=== PATIENT | female | born 1980 | race Caucasian/White ===

== ENCOUNTER 2018-11-06 15:57 | Emergency (ER) | payer OTHER ==
[~2018-11-06] VITALS: Ht 177.8 cm; Wt 111.7 kg
[2018-11-06] MEDS ORDERED: IV NORMAL SALINE 1,000ML 1,000 ML IV SCH (16:29)
[2018-11-06 16:54] LABS: BASO % 0 % (0-3); EOS # 0.4 x10^3/uL (0.0-0.7); EOS % 3 % (0-3); HEMATOCRIT 41.6 % (36.0-47.0); LYMPH # 3.9 x10^3/uL (1.0-4.8); LYMPH % 35 % (24-48); MEAN CORPUSCULAR HEMOGLOBIN 29 pg (25-35); MEAN CORPUSCULAR HGB CONC 34 g/dL (31-37); MEAN CORPUSCULAR VOLUME 87 fL (79-100); MONO # 0.8 x10^3/uL (0.0-1.1); MONO % 7 % (0-9); NEUT # 6.1 x10^3uL (1.8-7.7); NEUT % 55 % (31-73); PLATELET COUNT 318 x10^3/uL (140-400); RED CELL DISTRIBUTION WIDTH 13.1 % (11.5-14.5); WHITE BLOOD COUNT 11.1 x10^3/uL (4.0-11.0)
[2018-11-06] MEDS ORDERED: FAMOTIDINE 20 MG/2 ML VIAL IVP ONE (17:00)
[2018-11-06] MEDS ORDERED: ONDANSETRON PF 4 MG/2 ML VIAL. IV ONE (17:00)
[2018-11-06 17:11] LABS: ALBUMIN 3.5 g/dL (3.4-5.0); ALBUMIN/GLOBULIN RATIO 0.9 (1.0-1.7); CREATININE 0.9 mg/dL (0.6-1.0); GFR 70.1; POTASSIUM 3.8 mmol/L (3.5-5.1); TOTAL BILIRUBIN 0.3 mg/dL (0.2-1.0); TOTAL PROTEIN 7.2 g/dL (6.4-8.2)
--- NOTE | 2018-11-06 17:14 | PHYS DOC ---
Past History Past Medical History: Bipolar, Other Past Surgical History: Cholecystectomy, Tonsillectomy, Other Smoking: Cigarettes Alcohol Use: None Drug Use: None Adult General Chief Complaint Chief Complaint: ABDOMINAL PAIN HPI HPI Patient is a 38 year old female who presents with of abdominal pain. Patient complaining of upper abdominal pain more in the left site for the last 4 days as a constant and sharp pain without radiation of pain. Patient complaining of nausea and decrease of appetite without fever and chills, vomiting, urinary symptoms, vaginal bleeding or discharge. Patient states she takes metformin and had total of 4 episodes of diarrhea daily but for the last 4 days she has more episodes of diarrhea. Patient denies and states she is not sexually active. Patient had history of cholecystectomy and previous episodes of the same pain with peptic ulcer disease. Review of Systems Review of Systems Constitutional: Denies fever or chills [] Eyes: Denies change in visual acuity, redness, or eye pain [] HENT: Denies nasal congestion or sore throat [] Respiratory: Denies cough or shortness of breath [] Cardiovascular: No additional information not addressed in HPI [] GI: Reports abdominal pain, nausea, diarrhea, denies vomiting and constipation : Denies dysuria or hematuria [] Musculoskeletal: Denies back pain or joint pain [] Integument: Denies rash or skin lesions [] Neurologic: Denies headache, focal weakness or sensory changes [] Endocrine: Denies polyuria or polydipsia [] All other systems were reviewed and found to be within normal limits, except as documented in this note. Current Medications Current Medications Current Medications Medications (Trade) Dose Ordered Sig/[facility] Start Time Stop Time Status Last Admin Dose Admin Famotidine (Pepcid Vial) 20 mg 1X ONCE 11/06/18 17:00 11/06/18 17:01 DC 11/06/18 16:50 20 MG Ondansetron HCl (Zofran) 4 mg 1X ONCE 11/06/18 17:00 11/06/18 17:01 DC 11/06/18 16:49 4 MG Sodium Chloride 1,000 ml @ 1,000 mls/hr Q1H 11/06/18 16:29 11/06/18 17:28 11/06/18 16:47 1,000 MLS/HR Allergies Allergies Allergies Coded Allergies Type Severity Reaction Last Updated Verified hydrocodone Allergy Unknown Itching 11/06/18 Yes Physical Exam Physical Exam Constitutional: Well developed, well nourished, mild distress, non-toxic appearance. [] HENT: Normocephalic, atraumatic, oropharynx dry, no oral exudates, nose normal. [] Eyes: PERRLA, EOMI, conjunctiva normal, no discharge. [] Neck: Normal range of motion, no tenderness, supple, no stridor. [] Cardiovascular:Heart rate regular rhythm, no murmur [] Lungs & Thorax: Bilateral breath sounds clear to auscultation [] Abdomen: Bowel sounds normal, soft, no tenderness, no masses, no pulsatile masses. [] Skin: Warm, dry, no erythema, no rash. [] Back: No tenderness, no CVA tenderness. [] Extremities: No tenderness, no cyanosis, no clubbing, ROM intact, no edema. [] Neurologic: Alert and oriented X 3, normal motor function, normal sensory function, no focal deficits noted. [] Psychologic: Affect normal, judgement normal, mood normal. [] Current Patient Data Vital Signs Vital Signs Date Time Temp Pulse Resp B/P (MAP) Pulse Ox O2 Delivery O2 Flow Rate FiO2 11/06/18 16:04 98.0 91 16 96 Room Air Lab Results Laboratory Tests Test 11/06/18 16:40 White Blood Count 11.1 x10^3/uL (4.0-11.0) H Red Blood Count 4.80 x10^6/uL (3.50-5.40) Hemoglobin 14.0 g/dL (12.0-15.5) Hematocrit 41.6 % (36.0-47.0) Mean Corpuscular Volume 87 fL (79-100) Mean Corpuscular Hemoglobin 29 pg (25-35) Mean Corpuscular Hemoglobin Concent 34 g/dL (31-37) Red Cell Distribution Width 13.1 % (11.5-14.5) Platelet Count 318 x10^3/uL (140-400) Neutrophils (%) (Auto) 55 % (31-73) Lymphocytes (%) (Auto) 35 % (24-48) Monocytes (%) (Auto) 7 % (0-9) Eosinophils (%) (Auto) 3 % (0-3) Basophils (%) (Auto) 0 % (0-3) Neutrophils # (Auto) 6.1 x10^3uL (1.8-7.7) Lymphocytes # (Auto) 3.9 x10^3/uL (1.0-4.8) Monocytes # (Auto) 0.8 x10^3/uL (0.0-1.1) Eosinophils # (Auto) 0.4 x10^3/uL (0.0-0.7) Basophils # (Auto) 0.0 x10^3/uL (0.0-0.2) EKG EKG [] Radiology/Procedures Radiology/Procedures [] Course & Med Decision Making Course & Med Decision Making Pertinent Labs studies reviewed. (See chart for details) Evolution of patient in ER showed 38-year-old female patient with complaining of upper abdominal pain for 4 days. Patient had unremarkable physical exam and labs and felt better with IV fluid and Zofran and Pepcid. Patient has Pepcid at home and instructed to continue her home medication and follow with her primary care physician. Patient psychiatric to avoid of eating solid food for 2 days. Dragon Disclaimer Dragon Disclaimer This electronic medical record was generated, in whole or in part, using a voice recognition dictation system. Departure Departure: Impression: Primary Impression: Dyspepsia Additional Impressions: Abdominal pain Elevated liver function tests Tobacco abuse Tobacco abuse counseling Disposition: HOME, SELF-CARE (at 1725) Condition: IMPROVED Referrals: CRISTIANE SAWANT DO (PCP) Patient Instructions: Abdominal Pain, Diet for Gastroesophageal Reflux Disease , Adult, Smoking Cessation, Tips For Success Additional Instructions: Drink plenty of liquids Follow-up with your primary care physician in 3-5 days Return to ER if not getting better Take your home Famotidine Problem Qualifiers FRANCISCO TEJADA MD Nov 06, 2018 17:14
[2018-11-06 17:19] LABS: BACTERIA,URINE FEW /HPF (0-FEW); BILIRUBIN,URINE NEG (NEG); CLARITY,URINE HAZY; COLOR,URINE YELLOW; GLUCOSE,URINE NEG (NEG); NITRITE,URINE NEG (NEG); SQUAMOUS EPITHELIAL CELL,UR MANY /LPF; UROBILINOGEN,URINE 0.2 mg/dL (0.2 mg/dL)
[2018-11-06 17:39] VITALS: BP 142/73
== END 2018-11-06 17:40 | disposition home or self-care (01) ==
LOC: ER 15:57
DX: R10.13 Epigastric pain (principal); R79.89 Other specified abnormal findings of blood chemistry; R19.7 Diarrhea, unspecified; F17.210 Nicotine dependence, cigarettes, uncomplicated; Z90.49 Acquired absence of other specified parts of digestive tract; Z71.6 Tobacco abuse counseling; Z88.5 Allergy status to narcotic agent
CPT/HCPCS: 36415; 80053; 81001; 83690; 85025; 96361; 96374; 96375; 99283; J2405; J3490; J7030

== ENCOUNTER 2021-04-25 17:06 | Emergency (ER) | payer OTHER ==
[~2021-04-25] VITALS: Ht 177.8 cm; Wt 109.7 kg
[2021-04-25 19:41] LABS: BASO # 0.1 x10^3/uL (0.0-0.2); BASO % 1 % (0-3); EOS # 0.3 x10^3/uL (0.0-0.7); EOS % 2 % (0-3); HEMATOCRIT 40.4 % (36.0-47.0); HEMOGLOBIN 13.9 g/dL (12.0-15.5); LYMPH # 3.3 x10^3/uL (1.0-4.8); LYMPH % 26 % (24-48); MEAN CORPUSCULAR HEMOGLOBIN 31 pg (25-35); MEAN CORPUSCULAR HGB CONC 34 g/dL (31-37); MEAN CORPUSCULAR VOLUME 89 fL (79-100); MONO # 0.9 x10^3/uL (0.0-1.1); MONO % 7 % (0-9); NEUT % 64 % (31-73); PLATELET COUNT 329 x10^3/uL (140-400); RED BLOOD COUNT 4.54 x10^6/uL (3.50-5.40); RED CELL DISTRIBUTION WIDTH 13.2 % (11.5-14.5); WHITE BLOOD COUNT 12.5 x10^3/uL (4.0-11.0)
[2021-04-25 19:45] LABS: CALCIUM 9.9 mg/dL (8.5-10.1); CREATININE 0.9 mg/dL (0.6-1.0); POTASSIUM 3.6 mmol/L (3.5-5.1)
--- NOTE | 2021-04-25 20:19 | PHYS DOC ---
Past History Past Medical History: Anxiety, Asthma, Diabetes (LISBET LYONS APRN) Past Surgical History: No Surgical History (LISBET LYONS APRN) Smoking: Cigarettes Alcohol Use: None Drug Use: None (LISBET LYONS APRN) Adult General Chief Complaint Chief Complaint: SORE THROAT HPI HPI Patient is a 41-year-old female who presents to the emergency department complaining of a dry tongue that she believes to be thrush. Patient reports she came here directly from urgent care where she was treated for a sore throat and nasal congestion that she had been experiencing for approximately the past month. Patient states she was given a prescription for antibiotics and decongestants but they did not address her dry tongue. Patient states that she has had dry tongue problems for many years and attributes this to her psychiatric medications and reports that she has been told by her psychiatric physicians that this may be a ongoing side effect side effect and have recommended [id number] moistening medications that she has not tried. Patient states she does smoke cigarettes, has noticed some white patchy spots on her tongue. Denies tongue pain. Patient denies loss of taste or loss of smell. Patient denies cough or chest congestion, patient denies chest pain. Patient denies headaches. Patient denies recent fever or chills. Patient reports she has had the COVID-19 vaccine regimen. Patient denies illicit drug use or alcohol consumption. Patient denies any other physical complaints or physical concerns. (LISBET LYONS APRN) Review of Systems Review of Systems 14 body systems of review of systems have been reviewed. See HPI for pertinent positives and negative responses, otherwise all other systems are negative, nonpertinent or noncontributory. (LISBET LYONS APRN) Allergies Allergies Allergies Coded Allergies Type Severity Reaction Last Updated Verified hydrocodone Allergy Unknown Itching 11/06/18 Yes (LISBET LYONS APRN) Physical Exam Physical Exam Constitutional: Well developed, well nourished, no acute distress, non-toxic appearance. 41-year-old female in no apparent distress. HENT: Normocephalic, atraumatic, bilateral external ears normal, oropharynx moist, no oral exudates, nose normal. Oropharynx moist, no erythema appreciated, no peritonsillar swelling or edema, no uvular edema or swelling, no laryngeal edema. Patient speaking in normal voice tones. There is no respiratory stridor. Clear postnasal drip appreciated, bilateral nasal turbinates erythematous with clear drainage. Patient's tongue dry, no thrush infection appreciated, sustained brown. No lesions of the oral cavity appreciated. No drooling, no trismus appreciated. Normal dentition, gums intact, no gingivitis appreciated Eyes: PERRLA, EOMI, conjunctiva normal, no discharge. Neck: Normal range of motion, no tenderness, supple, no stridor. No meningismus signs, no nuchal rigidity. Cardiovascular:Heart rate regular rhythm, no murmur. Lungs & Thorax: Bilateral breath sounds clear to auscultation all lung garcia, no respiratory distress appreciated, no adventitious lung sounds appreciated. Abdomen: Bowel sounds normal, soft, no tenderness, no masses, no pulsatile masses. Skin: Warm, dry, no erythema, no rash. Back: No tenderness, no CVA tenderness. Extremities: No tenderness, no cyanosis, no clubbing, ROM intact, no edema. Neurologic: Alert and oriented X 3, normal motor function, normal sensory function, no focal deficits noted. Psychologic: Affect normal, judgement normal, mood normal. (LISBET LYONS APRN) Current Patient Data Vital Signs Vital Signs Date Time Temp Pulse Resp B/P (MAP) Pulse Ox O2 Delivery O2 Flow Rate FiO2 04/25/21 18:47 99.5 79 22 151/88 (109) 95 Lab Results Laboratory Tests Test 04/25/21 19:03 White Blood Count 12.5 x10^3/uL (4.0-11.0) H Red Blood Count 4.54 x10^6/uL (3.50-5.40) Hemoglobin 13.9 g/dL (12.0-15.5) Hematocrit 40.4 % (36.0-47.0) Mean Corpuscular Volume 89 fL (79-100) Mean Corpuscular Hemoglobin 31 pg (25-35) Mean Corpuscular Hemoglobin Concent 34 g/dL (31-37) Red Cell Distribution Width 13.2 % (11.5-14.5) Platelet Count 329 x10^3/uL (140-400) Neutrophils (%) (Auto) 64 % (31-73) Lymphocytes (%) (Auto) 26 % (24-48) Monocytes (%) (Auto) 7 % (0-9) Eosinophils (%) (Auto) 2 % (0-3) Basophils (%) (Auto) 1 % (0-3) Neutrophils # (Auto) 8.0 x10^3uL (1.8-7.7) H Lymphocytes # (Auto) 3.3 x10^3/uL (1.0-4.8) Monocytes # (Auto) 0.9 x10^3/uL (0.0-1.1) Eosinophils # (Auto) 0.3 x10^3/uL (0.0-0.7) Basophils # (Auto) 0.1 x10^3/uL (0.0-0.2) Sodium Level 138 mmol/L (136-145) Potassium Level 3.6 mmol/L (3.5-5.1) Chloride Level 104 mmol/L (98-107) Carbon Dioxide Level 24 mmol/L (21-32) Anion Gap 10 (6-14) Blood Urea Nitrogen 4 mg/dL (7-20) L Creatinine 0.9 mg/dL (0.6-1.0) Estimated GFR (Cockcroft-Gault) 69.0 Glucose Level 177 mg/dL (70-99) H Calcium Level 9.9 mg/dL (8.5-10.1) (LISBET LYONS APRN) EKG EKG [] (LISBET LYONS APRN) Radiology/Procedures Radiology/Procedures [] (LISBET LYONS APRN) Heart Score C/O Chest Pain: No Risk Factors: Risk Factors: DM, Current or recent (<one month) smoker, HTN, HLP, family history of CAD, obesity. Risk Scores: Risk Factors: DM, Current or recent (<one month) smoker, HTN, HLP, family history of CAD, obesity. (LISBET LYONS APRN) Course & Med Decision Making Course & Med Decision Making Pertinent Labs and Imaging studies reviewed. (See chart for details) 41-year-old female, vital signs reviewed, presents to the emergency department concerning she might have oral thrush. Physical examination consistent with upper respiratory infection, no oral thrush appreciated, there was no white patchy lesions of the tongue or oral cavity, there were no lesions of the tongue or oral cavity. The tongue was stained brown, most likely from history of cigarette smoking. The patient's tongue is dry in appearance, this is most likely related to patient's reported home medications of anxiolytics, antipsychotics, antidepressants. The patient has been seen for this in the past by her psychiatric physicians and reports it was recommended she use fluoride toothpaste to assist with keeping tongue moist, however patient states she does not as she should. Will order CBC, BMP. Patient's blood sugar slightly elevated at 177, patient is a type II diabetic, patient's white blood cell count slightly elevated at 12.5, this is most likely related to patient's diagnosis of URI, patient is being treated with antibiotics from urgent care prescribed today. Discussed with patient dry tongue syndrome, no thrush appreciated, thrush medication not indicated, recommended to follow psychiatric physicians recommendations for dry tongue, decrease caffeine intake and cigarette smoking to assist. Patient gave verbal understanding of discharge home instructions, states she will follow-up with her psychiatric physician this Tuesday if she has an appointment and will discuss her dry time with them for possible medication changes, patient gave verbal understanding of return to ER precautions and concerns, patient states that she is ready to go home, patient was discharged home without incident. (LISBET LYONS APRN) Course & Med Decision Making Did not see or evaluate patient. Agree with RECOVERY ENGINEER's work-up and disposition per note (CHIQUIS WHEAT MD) Dragon Disclaimer Dragon Disclaimer This electronic medical record was generated, in whole or in part, using a voice recognition dictation system. (LISBET LYONS APRN) Departure Departure: Impression: Primary Impression: Upper respiratory infection Additional Impression: Dry tongue Disposition: HOME / SELF CARE / HOMELESS Condition: GOOD Referrals: NELLIE MURPHY RECOVERY ENGINEER (PCP) Additional Instructions: You were seen today in the emergency department, please continue to take the medications urgent care has offered for your upper respiratory infection. Please follow-up with your physicians [facility] to discuss your dry tongue problems. Please return to the emergency department for worsening symptoms other concerns. EMERGENCY DEPARTMENT GENERAL DISCHARGE INSTRUCTIONS Thank you for coming to [facility] (ED) today and trusting us with you care. We trust that you had a positivie experience in our Emergency Department. If you wish to speak to the department management, you may call the director at [phone]. YOUR FOLLOW UP INSTRUCTIONS ARE FOLLOWS: 1. Do you have a private Doctor? If you do not have a private doctor, please ask for a resource list of physicians or clinics that may be able to assist you with fo llow up care. 2. The Emergency Physician has interpreted your x-rays. The X-Ray specialist will also review them. If there is a change in the findings, you will be notified in 48 hours when at all possible. 3. A lab test or culture has been done, your results will be reviewed and you will be notified if you need a change in treatment. ADDITIONAL INSTRUCTIONS AND INFORMATION: 1. Your care today has been supervised by a physician who is specially trained in emergency care. Many problems require more than one evaluation for a complete diagnosis and treatment. We recommend that you schedule your follow up appointment as recommended to ensure complete treatment of you illness or injury. If you are unable to obtain follow up care and continue to have a problem, or if your condition worsens, we recommend that you return to the ED. 2. We are not able to safely determine your condition over the phone nor are we able to give sound medical advice over the phone. For these safety reasons, if you call for medical advice we will ask you to come to the ED for further evaluation. 3. If you have any questions regarding these discharge instructions please call the ED at [phone]. SAFETY INFORMATION: In the interest of safety, wellness, and injury prevention; we encourage you to wear your sealbelt, if you smoke; quite smoking, and we encourage family to use a protecti ve helmet for bicycling and other sporting events that present an increased risk for head injury. IF YOUR SYMPTOMS WORSEN OR NEW SYMPTOMS DEVELOP, OR YOU HAVE CONCERNS ABOUT YOUR CONDITION; OR IF YOUR CONDITION WORSENS WHILE YOU ARE WAITING FOR YOUR FOLLOW UP APPOINTMENT; EITHER CONTACT YOUR PRIMARY CARE DOCTOR, THE PHYSICIAN WHOSE NAME AND NUMBER YOU WERE GIVEN, OR RETURN TO THE ED IMMEDIATELY. Problem Qualifiers Primary Impression: Upper respiratory infection URI type: unspecified URI Qualified Codes: J06.9 - Acute upper respiratory infection, unspecified LISBET LYONS APRN Apr 25, 2021 20:19 CHIQUIS WHEAT MD Apr 27, 2021 00:38
[2021-04-25 20:20] VITALS: BP 150/76
== END 2021-04-25 20:24 | disposition home or self-care (01) ==
LOC: ER 17:06
DX: J06.9 Acute upper respiratory infection, unspecified (principal); E11.9 Type 2 diabetes mellitus without complications; J45.909 Unspecified asthma, uncomplicated; F17.210 Nicotine dependence, cigarettes, uncomplicated
CPT/HCPCS: 36415; 80048; 85025; 99283-25

== ENCOUNTER 2021-07-09 18:42 | Emergency (ER) | payer OTHER ==
[~2021-07-09] VITALS: Ht 177.8 cm; Wt 109.5 kg
[2021-07-09 19:26] VITALS: BP 126/77
--- NOTE | 2021-07-09 19:56 | PHYS DOC ---
Past History Past Medical History: Anxiety, Asthma, Diabetes (ZENAIDA JACOME APRN) Past Surgical History: No Surgical History (ZENAIDA JACOME APRN) Smoking: Cigarettes Alcohol Use: None Drug Use: None (ZENAIDA JACOME APRN) General Adult EDM: Chief Complaint: FEVER HPI: HPI: Patient is a 41-year-old female who presents to the ER for fatigue, fever, headache, nonproductive cough, mild shortness of breath, nausea, and diarrhea. Patient has been vaccinated for COVID-19. Patient denies any sick exposures. Patient's vital signs are stable, she is afebrile, nonlabored (ZENAIDA JACOME APRN) Review of Systems: Review of Systems: 14 body systems of the review of systems have been reviewed. See HPI for pertinent positive and negative responses, otherwise all other systems are negative, nonpertinent or noncontributory (ZENAIDA JACOME APRN) Allergies: Allergies: Allergies Coded Allergies Type Severity Reaction Last Updated Verified hydrocodone Allergy Unknown Itching 07/09/21 Yes (ZENAIDA JACOME APRN) Physical Exam: PE: Constitutional: Well developed, well nourished, no acute distress, non-toxic appearance. [] HENT: Normocephalic, atraumatic, bilateral external ears normal, oropharynx moist, no oral exudates, nose normal. [] Eyes: PERRL, EOMI, conjunctiva normal, no discharge. [] Neck: Normal range of motion, no stridor Cardiovascular:Heart rate regular rhythm, no murmur [] Lungs & Thorax: Bilateral breath sounds clear to auscultation [] Abdomen: Bowel sounds normal, soft, no tenderness, no masses, no pulsatile masses. [] Skin: Warm, dry, no erythema, no rash. [] Back: Normal range of motion Extremities: No tenderness, no cyanosis, no clubbing, ROM intact, no edema. [] Neurologic: Alert and oriented X 3, normal motor function, normal sensory function, no focal deficits noted. [] Psychologic: Affect normal, judgement normal, mood normal. [] (ZENAIDA JACOME APRN) Current Patient Data: Vital Signs: Vital Signs Date Time Temp Pulse Resp B/P (MAP) Pulse Ox O2 Delivery O2 Flow Rate FiO2 07/09/21 19:26 99.7 96 18 126/77 95 Room Air (ZENAIDA JACOME APRN) EKG: EKG: [] (ZENAIDA JACOME APRN) Radiology/Procedures: Radiology/Procedures: PROCEDURE: PORTABLE CHEST 1V Single view chest dated 07/09/2021 8:15 PM: COMPARISON: None Clinical Indication: Shortness of breath and cough. Findings: Single upright portable exam of the chest was performed. Heart and mediastinal contours within normal limits. There is patchy perihilar airspace disease, left greater than right. No pleural effusion. No pneumothorax. IMPRESSION: 1. Mild patchy perihilar airspace disease, suspicious for pneumonia. Covid 19 pneumonitis not excluded. Electronically signed by: Aniceto Perry MD (07/09/2021 8:15 PM) [facility] [place] SIGNED BY: ANICETO PERRY MD DATE: 07/09/212014 CC: DAVE FREEMAN DO; ZENAIDA JACOME APRN; NELLIE MURPHY GENERAL ADMINISTRATOR ~MTH0 0 [] (ZENAIDA JACOME APRN) Heart Score: C/O Chest Pain: No Risk Factors: Risk Factors: DM, Current or recent (<one month) smoker, HTN, HLP, family history of CAD, obesity. Risk Scores: Score 0 - 3: 2.5% MACE over next 6 weeks - Discharge Home Score 4 - 6: 20.3% MACE over next 6 weeks - Admit for Clinical Observation Score 7 - 10: 72.7% MACE over next 6 weeks - Early Invasive Strategies (ZENAIDA JACMOE APRN) Course & Med Decision Making: Course & Med Decision Making Pertinent Labs and Imaging studies reviewed. (See chart for details) Patient is a 41-year-old female who presents to the ER for multiple complaints consistent with COVID-19 viral infection. Patient tested for COVID-19. Urinalysis and test were also performed. Chest x-ray performed to rule out pneumonia and it showed pneumonia. Patient discharged home with an antibiotic. Patient given first dose in the ER. Patient advised to follow-up with the primary care provider. Patient advised to take previously prescribed asthma medications as directed. I discussed with patient all findings and diagnostic testing as well as the need to follow-up with PCP for further evaluation and treatment or return to the ER if any new or worsening symptoms. Strict return precautions were also discussed at length. Patient voiced understanding and agreement with the plan. Patient is hemodynamically stable at the time of disposition. (ZENAIDA JACOME APRN) Course & Med Decision Making I have participated in the care of this patient and I have reviewed and agree with all pertinent clinical information above including history, exam, and recommendations. Dave Freeman DO (DAVE FREEMAN DO) Miguel Disclaimer: Miguel Disclaimer: This electronic medical record was generated, in whole or in part, using a voice recognition dictation system. (ZENAIDA JACOME APRN) Departure Departure: Impression: Primary Impression: Person under investigation for COVID-19 Additional Impression: Pneumonia Qualified Codes: J18.9 - Pneumonia, unspecified organism Disposition: HOME / SELF CARE / HOMELESS Condition: GOOD Referrals: NELLIE MURPHY GENERAL ADMINISTRATOR (PCP) Patient Instructions: Pneumonia, Adult Additional Instructions: You were seen for multiple complaints consistent with a COVID-19 infection.. Your physical exam was reassuring. Your chest x-ray showed no pneumonia. You were given your first dose of antibiotic in the ER today will be discharged home with a prescription. Please make sure you start and finish this completely. We tested you for COVID-19 but this test does not come back for 1 to 2 days. In the meantime you will need to quarantine yourself at home away from all other individuals, especially those who are elderly or have any other chronic health issues or any one with immunocompromise status. You should return to the ER if you develop worsening cough, shortness of breath, chest pain, or any other new or concerning symptoms. Alternate Tylenol and ibuprofen as needed for your body aches and pain. If your test does come back positive we will need to quarantine yourself for 10 days until symptom free. You should make sure to drink plenty of fluids and get plenty of rest. Please follow-up with your primary care provider. EMERGENCY DEPARTMENT GENERAL DISCHARGE INSTRUCTIONS Thank you for coming to [facility] (ED) today and trusting us with you care. We trust that you had a positivie experience in our Emergency Department. If you wish to speak to the department management, you may call the director at [phone]. YOUR FOLLOW UP INSTRUCTIONS ARE FOLLOWS: 1. Do you have a private Doctor? If you do not have a private doctor, please ask for a resource list of physicians or clinics that may be able to assist you with follow up care. 2. The Emergency Physician has interpreted your x-rays. The X-Ray specialist will also review them. If there is a change in the findings, you will be notified in 48 hours when at all possible. 3. A lab test or culture has been done, your results will be reviewed and you will be notified if you need a change in treatment. ADDITIONAL INSTRUCTIONS AND INFORMATION: 1. Your care today has been supervised by a physician who is specially trained in emergency care. Many problems require more than one evaluation for a complete diagnosis and treatment. We recommend that you schedule your follow up appointment as recommended to ensure complete treatment of you illness or injury. If you are unable to obtain follow up care and continue to have a problem, or if your condition worsens, we recommend that you return to the ED. 2. We are not able to safely determine your condition over the phone nor are we able to give sound medical advice over the phone. For these safety reasons, if you call for medical advice we will ask you to come to the ED for further evaluation. 3. If you have any questions regarding these discharge instructions please call the ED at [phone]. SAFETY INFORMATION: In the interest of safety, wellness, and injury prevention; we encourage you to wear your sealbelt, if you smoke; quite smoking, and we encourage family to use a protective helmet for bicycling and other sporting events that present an increased risk for head injury. IF YOUR SYMPTOMS WORSEN OR NEW SYMPTOMS DEVELOP, OR YOU HAVE CONCERNS ABOUT YOUR CONDITION; OR IF YOUR CONDITION WORSENS WHILE YOU ARE WAITING FOR YOUR FOLLOW UP APPOINTMENT; EITHER CONTACT YOUR PRIMARY CARE DOCTOR, THE PHYSICIAN WHOSE NAME AND NUMBER YOU WERE GIVEN, OR RETURN TO THE ED IMMEDIATELY. Scripts Azithromycin (AZITHROMYCIN TABLET) 250 Mg Tablet 250 MG PO DAILY for ANTI-BIOTIC for 4 Days, #4 TAB 0 Refills Prov: ZENAIDA JACOME APRN 07/09/21 ZENAIDA JACOME APRN Jul 09, 2021 19:56 DAVE FREEMAN DO Jul 10, 2021 03:29
--- NOTE | 2021-07-09 20:18 | RAD ---
Single view chest dated 07/09/2021 8:15 PM: COMPARISON: None Clinical Indication: Shortness of breath and cough. Findings: Single upright portable exam of the chest was performed. Heart and mediastinal contours within normal limits. There is patchy perihilar airspace disease, left greater than right. No pleural effusion. No pneumothorax. IMPRESSION: 1. Mild patchy perihilar airspace disease, suspicious for pneumonia. Covid 19 pneumonitis not exclude d. Electronically signed by: Aniceto Perry MD (07/09/2021 8:15 PM) [facility]
[2021-07-09] MEDS ORDERED: AZIT250T6 PO (20:26)
[2021-07-09] MEDS ORDERED: AZITHROMYCIN 250 MG TABLET. PO ONE (20:30)
[2021-07-09 21:12] LABS: BILIRUBIN,URINE SMALL (NEG); CLARITY,URINE CLOUDY; COLOR,URINE AMBER; GLUCOSE,URINE NEG (NEG)
[2021-07-09 21:13] LABS: BACTERIA,URINE MOD /HPF (0-FEW); NITRITE,URINE NEG (NEG); SQUAMOUS EPITHELIAL CELL,UR MOD /LPF; UROBILINOGEN,URINE 0.2 mg/dL (0.2 mg/dL)
== END 2021-07-09 21:00 | disposition home or self-care (01) ==
LOC: ER 18:42
DX: J18.9 Pneumonia, unspecified organism (principal); J45.909 Unspecified asthma, uncomplicated; E11.9 Type 2 diabetes mellitus without complications; F17.210 Nicotine dependence, cigarettes, uncomplicated; Z20.822 Contact with and (suspected) exposure to COVID-19
CPT/HCPCS: 71045; 81001; 81025; 87086; 99284; U0003

== ENCOUNTER 2021-11-18 09:04 | Emergency (ER) | payer SELFPAY ==
[~2021-11-18] VITALS: Ht 177.8 cm; Wt 108.3 kg
[~2021-11-18 09:04] MED LIST: AZIT250T6 PO
[2021-11-18] MEDS ORDERED: IV NORMAL SALINE 1,000ML 1,000 ML IV ONE ×2 (09:30)
[2021-11-18 10:04] LABS: BASO # 0.1 x10^3/uL (0.0-0.2); BASO % 1 % (0-3); EOS # 0.1 x10^3/uL (0.0-0.7); EOS % 1 % (0-3); HEMATOCRIT 43.5 % (36.0-47.0); HEMOGLOBIN 14.8 g/dL (12.0-15.5); LYMPH # 4.3 x10^3/uL (1.0-4.8); LYMPH % 39 % (24-48); MEAN CORPUSCULAR HEMOGLOBIN 30 pg (25-35); MEAN CORPUSCULAR HGB CONC 34 g/dL (31-37); MEAN CORPUSCULAR VOLUME 89 fL (79-100); MONO # 0.7 x10^3/uL (0.0-1.1); MONO % 7 % (0-9); NEUT # 5.8 x10^3uL (1.8-7.7); NEUT % 53 % (31-73); PLATELET COUNT 363 x10^3/uL (140-400)
[2021-11-18 10:09] LABS: CALCIUM 9.2 mg/dL (8.5-10.1); CREATININE 0.8 mg/dL (0.6-1.0); POTASSIUM 4.2 mmol/L (3.5-5.1)
[2021-11-18 10:29] LABS: ALBUMIN 3.9 g/dL (3.4-5.0); ALBUMIN/GLOBULIN RATIO 1.1 (1.0-1.7); TOTAL BILIRUBIN 0.2 mg/dL (0.2-1.0); TOTAL PROTEIN 7.5 g/dL (6.4-8.2)
--- NOTE | 2021-11-18 10:33 | RAD ---
INDICATION: Reason: SOB / Spl. Instructions: / History: COMPARISON: July 09, 2021 FINDINGS: Single view of chest obtained. Enlarged cardiomediastinal silhouette. There are some airspace opacities at the bilateral lower lungs. IMPRESSION: * Bilateral opacities at the lung bases. A portion of this is likely secondary to overlap of soft ti ssue structures but superimposed atelectasis or infiltrate could have this appearance. Follow-up coul d be obtained to ensure that this appropriately decreases to exclude persistent nodule. Electronically signed by: Ji Anderson MD (11/18/2021 10:09 AM) [id number]
[2021-11-18 10:35] LABS: INFLUENZA A PATIENT NEGATIVE (NEGATIVE); INFLUENZA B PATIENT NEGATIVE (NEGATIVE)
[2021-11-18 11:05] LABS: BACTERIA,URINE FEW /HPF (0-FEW); BILIRUBIN,URINE NEG (NEG); CLARITY,URINE HAZY; COLOR,URINE YELLOW; GLUCOSE,URINE 100 mg/dL (NEG); NITRITE,URINE NEG (NEG); UROBILINOGEN,URINE 0.2 mg/dL (0.2 mg/dL)
[2021-11-18 11:06] LABS: SQUAMOUS EPITHELIAL CELL,UR MOD /LPF; YEAST,URINE PRESENT /HPF
[2021-11-18 11:53] VITALS: BP 139/109
--- NOTE | 2021-11-18 13:02 | PHYS DOC ---
Past History Past Medical History: Anxiety, Asthma, Diabetes Additional Past Medical Histor: PTSD Past Surgical History: No Surgical History, Tonsillectomy, Other Additional Past Surgical Histo: jaw fx repair; cyst removed from vocal cord; abd lap x2; uvla & soft palate Smoking: Cigarettes Alcohol Use: None Drug Use: None General Adult EDM: Chief Complaint: HYPERGLYCEMIA HPI: HPI: 41-year-old female presents via EMS with hyperglycemia. The patient has been feeling a bit lightheaded and fatigued for the last couple days. Today it was worse. She checked her blood sugar and it was in the 400s. EMS arrived and also found to be in the mid 400s. The patient is on diabetes medications but not insulin. She is supposed be on 4 medications but cannot afford 2 of them until the first of the year. Patient has not had a fever at home. She is trying to stay well-hydrated. Review of Systems: Review of Systems: Constitutional: Denies fever or chills. Fatigue. Eyes: Denies change in visual acuity HENT: Denies nasal congestion or sore throat Respiratory: Mild shortness of breath Cardiovascular: Denies chest pain or edema GI: Nausea. Denies abdominal pain, vomiting, bloody stools or diarrhea : Denies dysuria Musculoskeletal: Denies back pain or joint pain Integument: Denies rash Neurologic: Denies headache, focal weakness or sensory changes Endocrine: Polydipsia and polyuria Lymphatic: Denies swollen glands Psychiatric: Denies depression or anxiety Current Medications: Current Meds: Current Medications Medications (Trade) Dose Ordered Sig/Nellie Start Time Stop Time Status Last Admin Dose Admin Sodium Chloride 1,000 ml @ 1,000 mls/hr 1X ONCE 11/18/21 09:30 11/18/21 10:30 DC 11/18/21 11:00 1,000 MLS/HR Allergies: Allergies: Allergies Coded Allergies Type Severity Reaction Last Updated Verified hydrocodone Allergy Unknown Itching 11/18/21 Yes Physical Exam: PE: Constitutional: Well developed, well nourished, morbidly obese, no acute distress, non-toxic appearance. [] HENT: Normocephalic, atraumatic, bilateral external ears normal, oropharynx moist, no oral exudates, nose normal. [] Eyes: PERRLA, EOMI, conjunctiva normal, no discharge. [] Neck: Normal range of motion, no tenderness, supple, no stridor. [] Cardiovascular: Heart rate regular rhythm, no murmur [] Lungs & Thorax: Bilateral breath sounds clear to auscultation [] Abdomen: Bowel sounds normal, soft, no tenderness, no masses, no pulsatile masses. [] Skin: Warm, dry, no erythema, no rash. [] Back: No tenderness, no CVA tenderness. [] Extremities: No tenderness, no cyanosis, no clubbing, ROM intact, no edema. [] Neurologic: Alert and oriented X 3, normal motor function, normal sensory function, no focal deficits noted. [] Psychologic: Affect normal, judgement normal, mood anxious. [] Current Patient Data: Labs: Laboratory Tests Test 11/18/21 09:37 11/18/21 09:38 11/18/21 09:39 11/18/21 09:45 Urine Collection Type Unknown Urine Color Yellow Urine Clarity Hazy Urine pH 5.5 Urine Specific [place] >=1.030 Urine Protein Neg (NEG-TRACE) Urine Glucose (UA) 100 mg/dL (NEG) Urine Ketones (Stick) Neg mg/dL (NEG) Urine Blood Neg (NEG) Urine Nitrite Neg (NEG) Urine Bilirubin Neg (NEG) Urine Urobilinogen Dipstick 0.2 mg/dL (0.2 mg/dL) Urine Leukocyte Esterase Neg (NEG) Urine RBC 1-2 /HPF (0-2) Urine WBC 1-4 /HPF (0-4) Urine Squamous Epithelial Cells Mod /LPF Urine Bacteria Few /HPF (0-FEW) Urine Yeast Present /HPF White Blood Count 11.0 x10^3/uL (4.0-11.0) Red Blood Count 4.90 x10^6/uL (3.50-5.40) Hemoglobin 14.8 g/dL (12.0-15.5) Hematocrit 43.5 % (36.0-47.0) Mean Corpuscular Volume 89 fL (79-100) Mean Corpuscular Hemoglobin 30 pg (25-35) Mean Corpuscular Hemoglobin Concent 34 g/dL (31-37) Red Cell Distribution Width 13.0 % (11.5-14.5) Platelet Count 363 x10^3/uL (140-400) Neutrophils (%) (Auto) 53 % (31-73) Lymphocytes (%) (Auto) 39 % (24-48) Monocytes (%) (Auto) 7 % (0-9) Eosinophils (%) (Auto) 1 % (0-3) Basophils (%) (Auto) 1 % (0-3) Neutrophils # (Auto) 5.8 x10^3uL (1.8-7.7) Lymphocytes # (Auto) 4.3 x10^3/uL (1.0-4.8) Monocytes # (Auto) 0.7 x10^3/uL (0.0-1.1) Eosinophils # (Auto) 0.1 x10^3/uL (0.0-0.7) Basophils # (Auto) 0.1 x10^3/uL (0.0-0.2) Sodium Level 138 mmol/L (136-145) Potassium Level 4.2 mmol/L (3.5-5.1) Chloride Level 102 mmol/L (98-107) Carbon Dioxide Level 24 mmol/L (21-32) Anion Gap 12 (6-14) Blood Urea Nitrogen 8 mg/dL (7-20) Creatinine 0.8 mg/dL (0.6-1.0) Estimated GFR (Cockcroft-Gault) 79.0 BUN/Creatinine Ratio 10 (6-20) Glucose Level 244 mg/dL (70-99) H Calcium Level 9.2 mg/dL (8.5-10.1) Total Bilirubin 0.2 mg/dL (0.2-1.0) Aspartate Amino Transferase (AST) 20 U/L (15-37) Alanine Aminotransferase (ALT) 39 U/L (14-59) Alkaline Phosphatase 67 U/L (46-116) Total Protein 7.5 g/dL (6.4-8.2) Albumin 3.9 g/dL (3.4-5.0) Albumin/Globulin Ratio 1.1 (1.0-1.7) Glucose (Fingerstick) 260 mg/dL (70-99) H Influenza Type A (Rapid) Negative (NEGATIVE) Influenza Type B (Rapid) Negative (NEGATIVE) Vital Signs: Vital Signs Date Time Temp Pulse Resp B/P (MAP) Pulse Ox O2 Delivery O2 Flow Rate FiO2 11/18/21 09:10 97.9 90 20 152/102 (119) 95 Room Air EKG: EKG: [] Radiology/Procedures: Radiology/Procedures: [] Heart Score: C/O Chest Pain: N/A Risk Factors: Risk Factors: DM, Current or recent (<one month) smoker, HTN, HLP, family history of CAD, obesity. Risk Scores: Score 0 - 3: 2.5% MACE over next 6 weeks - Discharge Home Score 4 - 6: 20.3% MACE over next 6 weeks - Admit for Clinical Observation Score 7 - 10: 72.7% MACE over next 6 weeks - Early Invasive Strategies Course & Med Decision Making: Course & Med Decision Making Pertinent Labs and Imaging studies reviewed. (See chart for details) The patient's labs are unremarkable except for glucose of 244. She has a normal anion gap. We gave her a liter of normal saline. Her urinalysis was negative for infection but positive for yeast. The patient is not having UTI symptoms so I will not treat this at this time. I have encouraged her to reestablish with her provider and get back on all of her medications as soon as she gets insurance in a few days. Patient states verbal understanding. Her rapid influenza was negative. Her Covid PCR is pending. She will be notified about results when they become available. She is stable for discharge at this time. [] Dragon Disclaimer: Dragon Disclaimer: This electronic medical record was generated, in whole or in part, using a voice recognition dictation system. Departure Departure: Impression: Primary Impression: Hyperglycemia Additional Impression: Suspected COVID-19 virus infection Disposition: HOME / SELF CARE / HOMELESS Condition: STABLE Referrals: NELLIE MURPHY CHILD CARE AIDE (PCP) Patient Instructions: Hyperglycemia, [id number] Additional Instructions: You have been tested for or diagnosed with COVID-19. It is an infection caused by a new type of coronavirus. COVID-19 will cause cold-like or mild flu symptoms in most. It can cause more severe symptoms like problems breathing in some. There is no treatment for COVID-19. The body will clear the infection over time. Self-care will help to ease discomfort. Steps to Take: Self-Care Rest as needed. Healthy habits may help you feel better. Steps include: Choose healthy foods including fruits and vegetables. Drink water throughout the day. Get plenty of sleep each night. If you smoke, try to quit. It may ease breathing. Avoid alcohol. Keep Others Healthy The virus can spread to others. Droplets are released every time you sneeze or cough. The droplets can get into the mouth, nose, or eyes of people near you and lead to infection. To lower the chances of spreading COVID-19 to others: Stay at home until your doctor has said it is safe to leave. If you tested positive this will mean staying isolated until both of the following are true: At least 7 days have passed since the start of illness. You are free of fever for at least 72 hours without the use of medicine. During this time: - Avoid public areas, events, or transportation. Do not return to work or school until your doctor has said it is safe to do so. - Call ahead if you need to go to a medical center. Let them know you may have COVID-19. It will help them guide you where to go. They may also ask you to wear a facemask when you come to the office. - If you call for emergency medical services, let them know you may have COVID- 19. While at home: - Try to avoid close contact with others. Stay about 6 feet away. - If possible, spend most of your time in a separate room from others. - Use a face mask if you will be in close contact with others such as sharing a room or vehicle. - Have someone wipe down common surfaces in the home. Use household senior research project manager every day on areas like doorknobs, counters, or sinks. - Cough or sneeze into a tissue. Throw the tissue away right after use. If a tissue is not available, cough or sneeze into your elbow. - Wash your hands often. Wash them after sneezing or coughing. Use soap and water and wash for at least 20 seconds. Alcohol based hand marble cleaner can be used if soap and water is not available. - Do not prepare food for others. Avoid sharing personal items like forks, spoo ns, or toothbrushes. - Avoid close contact with pets while you are sick. There is no evidence of the virus passing to pets. This is a safety step until more is known about this virus. Isolation can be frustrating. Social interaction can help. Keep in touch with friends and family through phone and tech options. You can still interact with others in your home, just keep a safe distance of about 6 feet. Follow-up: Your doctors office will check in with you to see if there are any changes in your health. You may be asked to keep track of symptoms to share with them. They will also let you know when you are clear to be in public again. Problems to Look Out For: Contact your doctor if your recovery is not going as you expect. Get emergency care if you have problems such as: - Trouble breathing - Nonstop chest pain or pressure - Changes in awareness, confusion, or problems waking - Lips or face have bluish color - Worsening of symptoms If you think you have an emergency, call for emergency medical services right away. As taken from [facility] BRET BANEGAS DO Nov 18, 2021 13:02
== END 2021-11-18 11:53 | disposition home or self-care (01) ==
LOC: ER 09:04
DX: E11.65 Type 2 diabetes mellitus with hyperglycemia (principal); F41.9 Anxiety disorder, unspecified; J45.909 Unspecified asthma, uncomplicated; F17.210 Nicotine dependence, cigarettes, uncomplicated; Z20.822 Contact with and (suspected) exposure to COVID-19; Z88.5 Allergy status to narcotic agent
CPT/HCPCS: 36415; 71045; 80053; 81001; 82947; 85025; 87804; 96360; 96361; 99284; C9803; J7030; U0003